=== PATIENT | female | born 2005 | race Two or more races ===

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

== ENCOUNTER 2024-02-17 08:53 | Emergency (ER) | payer OTHER ==
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
[2024-02-17 09:20] VITALS: O2SAT 100
[2024-02-17] MEDS: SODIUM CHLORIDE 0.9% 1,000 ML IV STA (09:27)
[2024-02-17] MEDS: METOCLOPRAMIDE 10 MG/2 ML VIAL IVP STA (09:27)
[2024-02-17] MEDS ORDERED: iohexoL-300 100 ML VIAL ONE (09:27)
[2024-02-17 09:28] LABS: BASOPHILS % (AUTO) 0.4 %; EOSINOPHILS # (AUTO) 0.1 10^3/uL (0.0-0.7); EOSINOPHILS % (AUTO) 2.1 %; LYMPHOCYTES # (AUTO) 1.6 10^3/uL (1.5-3.5); LYMPHOCYTES % (AUTO) 28.1 %; MEAN CORPUSCULAR HEMOGLOBIN 29.9 pg (27.0-31.0); MEAN CORPUSCULAR HGB CONC 34.1 g/dL (32.0-36.0); MEAN CORPUSCULAR VOLUME 87.4 fL (81.0-99.0); MEAN PLATELET VOLUME 11.4 fL (7.9-10.8); MONOCYTES # (AUTO) 0.2 10^3/uL (0.0-1.0); MONOCYTES % (AUTO) 4.1 %; NEUTROPHILS # (AUTO) 3.7 10^3/uL (1.5-6.6); NEUTROPHILS % (AUTO) 65.1 %; PLT - PLATELET COUNT 219 10^3/uL (130-450); RED BLOOD COUNT 4.69 10^6/uL (4.20-5.40); RED CELL DISTRIBUTION WIDTH 12.1 % (12.0-15.0); WHITE BLOOD COUNT 5.7 x10^3/uL (4.8-10.8)
[2024-02-17 10:04] LABS: ALBUMIN 4.6 g/dL (3.2-5.5); ALBUMIN/GLOBULIN RATIO 1.6 (1.0-2.2); BILIRUBIN,TOTAL 0.4 mg/dL (0.2-1.0); CALCIUM 9.5 mg/dL (8.5-10.3); CREATININE 0.6 mg/dL (0.6-1.3); MAGNESIUM 1.7 mg/dL (1.7-2.3); POTASSIUM 3.8 mmol/L (3.5-4.5); TOTAL PROTEIN 7.5 g/dL (6.4-8.9)
[2024-02-17 10:40] LABS: BILIRUBIN,URINE NEGATIVE (NEGATIVE); CLARITY,URINE CLEAR (CLEAR); GLUCOSE, URINE (UA) NEGATIVE (NEGATIVE); KETONES,URINE (UA) NEGATIVE (NEGATIVE); LEUKOCYTE ESTERASE, URINE NEGATIVE (NEGATIVE); NITRITE,URINE NEGATIVE (NEGATIVE); OCCULT BLOOD,URINE NEGATIVE (NEGATIVE); PH,URINE 6.5 PH (5.0-7.5); PROTEIN,URINE NEGATIVE (NEGATIVE); UROBILINOGEN,URINE 0.2 (NORMAL) E.U./dL (NORMAL)
[2024-02-17 10:43] LABS: HCG UR QUAL NEGATIVE
--- NOTE | 2024-02-17 11:09 | CT Report ---
PROCEDURE: Abdomen/Pelvis W INDICATIONS: iv only llq pain CONTRAST: Omni 300 100ml TECHNIQUE: After the administration of intravenous contrast, a CT scan of the abdomen and pelvis was performed. Images were recorded and evaluated at appropriate window settings. Reformats: coronal and sagittal. F or radiation dose reduction, the following was used: automated exposure control, adjustment of mA and /or kV according to patient size. COMPARISON: None. FINDINGS: Image quality: Diagnostic. Lower chest: Unremarkable. Liver: No solid mass. Gallbladder: No radiopaque stones or wall thickening. Biliary tree: No intrahepatic or extrahepatic dilation, accounting for age. Spleen: No splenomegaly. Pancreas: No pancreatic ductal dilation. Adrenals: No adrenal nodule. Kidneys and ureters: No hydronephrosis. No renal cystic lesion which requires follow up. No solid mas s. Stomach, bowel and peritoneum: No gastric or small bowel dilation. No abnormal wall thickening. No pa thologic free fluid. Normal appendix. Lymph nodes: No central or retroperitoneal adenopathy. Vessels: No infrarenal aortic aneurysm. Patent portal vein. PELVIS Reproductive organs: Intrauterine device in place. Left ovarian cyst measuring 2.1 cm.. Bladder: No abnormal wall thickening, accounting for underdistention. Pelvic lymph nodes: No pelvic adenopathy by size criteria. Bones: No aggressive osseous abnormality. Other: No significant ventral or inguinal hernia. IMPRESSION: 1.No acute findings within the abdomen or pelvis. 2.Left ovarian cyst measuring 2.1 cm, likely physiologic. Reviewed by: Jeff Jane MD on 02/17/2024 11:08 AM PDT Approved by: Jeff Jane MD on 02/17/2024 11:08 AM PDT Station ID: [id number]
[2024-02-17 11:22] VITALS: BP 105/62
[2024-02-17] MEDS: iohexoL-300 100 ML VIAL IVP ONE (12:25)
== END 2024-02-17 11:32 | disposition home or self-care (01) ==
LOC: ED 08:53
DX: K52.9 Noninfective gastroenteritis and colitis, unspecified (principal)
CPT/HCPCS: 36415; 74177; 80053; 81003; 81025; 83735; 85025; 93005; 96374; 99284; J2765; Q9967; 81001; 87086